=== PATIENT | female | born 1990 | race Caucasian/White ===

== ENCOUNTER 2018-12-05 13:40 | Emergency (ER) | payer OTHER ==
[~2018-12-05] VITALS: Ht 157.5 cm; Wt 91.0 kg
[2018-12-05] MEDS ORDERED: HYDROCODONE/ACETAMINOPHEN 5/325MG TABLET PO PRN (16:30)
[2018-12-05] MEDS ORDERED: LIDOCAINE 1%/EPI 1:100,000 10 ML VIAL IJ ONE (16:45)
[2018-12-05] MEDS ORDERED: LIDOCAINE HCL/EPINEPHRINE 1%-EPI 1:100,000 20 ML VIAL MC ONE (17:00)
[2018-12-05 18:17] VITALS: BP 118/72
== END 2018-12-05 18:24 | disposition home or self-care (01) ==
LOC: ER 13:40
DX: S51.851A Open bite of right forearm, initial encounter (principal); S51.811A Laceration without foreign body of right forearm, initial encounter; W54.0XXA Bitten by dog, initial encounter; Y93.89 Activity, other specified; Y92.89 Other specified places as the place of occurrence of the external cause
CPT/HCPCS: 12001; 99283; J3490; 12002

== ENCOUNTER 2022-03-26 10:26 | Emergency (ER) | payer OTHER ==
[~2022-03-26] VITALS: Ht 165.1 cm; Wt 78.0 kg
[2022-03-26] MEDS ORDERED: SODIUM CHLORIDE 0.9% 1,000 ML IV ONE (11:00)
[2022-03-26 11:15] LABS: BASOPHILS % 0.4 % (0.0-2.0); EOSINOPHILS % 1.8 % (0.0-5.0); HEMATOCRIT. 38.7 % (36.0-48.0); HEMOGLOBIN. 13.4 g/dL (12.0-16.0); LYMPHOCYTES % 17.8 % (20.0-50.0); MEAN CORPUSCULAR HEMOGLOBIN 29.9 pg (28.0-32.0); MEAN CORPUSCULAR VOLUME 86.5 fL (81.0-99.0); MEAN PLATELET VOLUME 9.5 fl (7.4-10.4); MONOCYTES % 6.2 % (2.0-8.0); NEUTROPHILS % 73.8 % (40.0-76.0); PLATELET 198 x1000/uL (130-400); RED BLOOD CELL COUNT 4.48 mill/uL (4.2-5.4); RED CELL DISTRIBUTION WIDTH 13.7 % (11.6-14.6)
[2022-03-26 11:23] VITALS: BP 92/47
[2022-03-26 11:26] LABS: CHLORIDE 114 mEq/L (98-107)
[2022-03-26 11:31] LABS: HCG SCREEN NEGATIVE
== END 2022-03-26 13:07 | disposition home or self-care (01) ==
LOC: ER 10:26
DX: S09.8XXA Other specified injuries of head, initial encounter (principal); R55 Syncope and collapse; X58.XXXA Exposure to other specified factors, initial encounter; Y93.89 Activity, other specified; Y92.9 Unspecified place or not applicable
CPT/HCPCS: 36415; 70450; 80053; 82962; 84703; 85025; 93005; 96360; 99285; J7030